=== PATIENT | male | born 1995 | race Caucasian/White ===

== ENCOUNTER 2018-02-22 08:54 | Emergency (ER) | payer OTHER ==
[2018-02-22 09:04] VITALS: BP 113/71; PULSE 68; TEMP 98.3; BMI 25.8
--- NOTE | 2018-02-22 09:18 | PDOC ---
History of Present Illness - General Chief Complaint: Eye Problem Stated Complaint: EYE PROBLEM Time Seen by Provider: 02/22/18 09:06 History Source: Patient Exam Limitations: No Limitations - History of Present Illness Initial Comments: Patient is a 22-year-old male who states that yesterday he was "poked in the eye ". He denies visual disturbances. He admits to photophobia. Denies pain with extraocular movement. Denies wearing contacts or glasses. Patient describes the pain as a constant throb and rates it at a 3 out of 10. Denies any aggravating or relieving factors. 02/22/18 09:14 Past History - Travel Traveled outside of the country in the last 30 days: No Close contact w/someone who was outside of country & ill: No - Past Medical History Allergies/Adverse Reactions: Allergies Allergy/AdvReac Type Severity Reaction Status Date / Time No Known Allergies Allergy Verified 02/22/18 09:01 Home Medications: Ambulatory Orders Ibuprofen [Motrin] 600 mg PO Q6H PRN #20 tablet 07/07/11 Erythromycin 0.5% Eye Ointment [Erythromycin 0.5% Eye Ointment -] 1 applic OD QID #1 tube 02/22/18 COPD: No - Surgical History Abdominal Surgery: Yes (hernia) - Suicide/Smoking/Psychosocial Hx Smoking Status: Yes Smoking History: Never smoked Have you smoked in the past 12 months: No Number of Cigarettes Smoked Daily: 5 Information on smoking cessation initiated: No Hx Alcohol Use: No Drug/Substance Use Hx: No Substance Use Type: None Review of Systems - Review of Systems Able to Perform ROS?: Yes HEENTM: Yes: Eye Pain, Tearing. No: Blurred Vision, Recent change in vision, Double Vision, Cataracts All Other Systems: Reviewed and Negative *Physical Exam - Vital Signs Last Vital Signs Temp Pulse Resp BP Pulse Ox 98.3 F 68 18 113/71 100 02/22/18 09:02 02/22/18 09:02 02/22/18 09:02 02/22/18 09:02 02/22/18 09:02 - Physical Exam Comments: Constitutional: VS stated, pt appears in no apparent distress; sitting in chair. Skin: Warm and dry. Intact, no lesions or excoriations. Head: Normocephalic; atraumatic Eyes: Extraocular movements intact, PERRL, conjunctiva is injected on the right. No discharge. Lids normal; no periorbital edema or erythema. Vision subjectively normal or at baseline. No pain with extraocular movements. Throat: Oropharynx with pink and moist mucosa. Lungs: Bilateral breath sounds clear upon auscultation. No adventitious breath sounds. Heart: Regular rate and rhythm, S1/S2 auscultated. No murmurs, rubs, or gallops. No visible pulsations, heaves, or lifts on precordium. Musculoskeletal: Moves all extremities without difficulty. Neurologic: Awake, alert. Conversation fluent Psychiatric: Appropriate affect. 02/22/18 09:15 Medical Decision Making - Medical Decision Making Two drops of Tetracaine Ophthalmic were placed in the right eye with good anesthetic effect. Fluorescein stain with lamp exam revealed a corneal abrasion. 02/22/18 09:16 *DC/Admit/Observation/Transfer Diagnosis at time of Disposition: Corneal abrasion - Discharge Dispostion Disposition: HOME Condition at time of disposition: Stable Decision to Admit order: No - Prescriptions Prescriptions: Erythromycin 0.5% Eye Ointment [Erythromycin 0.5% Eye Ointment -] 1 applic OD QID #1 tube - Referrals Referrals: Marycruz Acosta MD [Staff Physician] - - Patient Instructions - Post Discharge Activity
== END 2018-02-22 09:37 | disposition home or self-care (01) ==
LOC: JERFT 08:54
DX: S05.01XA Injury of conjunctiva and corneal abrasion without foreign body, right eye, initial encounter (principal); W50.0XXA Accidental hit or strike by another person, initial encounter; Y93.89 Activity, other specified; Y92.89 Other specified places as the place of occurrence of the external cause; Y99.8 Other external cause status
CPT/HCPCS: 99281-25

== ENCOUNTER 2021-08-25 16:46 | Emergency (ER) | payer OTHER ==
[2021-08-25 17:21] VITALS: BP 120/71; PULSE 90; TEMP 98.5; BMI 27.0
[2021-08-25] MEDS ORDERED: ACETAMINOPHEN 500 MG TABLET (FP) PO ONE (19:30)
[2021-08-25] MEDS ORDERED: ACETAMINOPHEN 500 MG TABLET (FP) ONE (19:33)
== END 2021-08-25 20:17 | disposition home or self-care (01) ==
LOC: JERFT 16:46
DX: S96.912A Strain of unspecified muscle and tendon at ankle and foot level, left foot, initial encounter (principal); X50.0XXA Overexertion from strenuous movement or load, initial encounter
CPT/HCPCS: 73590-TC-LT-FY; 73610-TC-LT-FY; 73630-TC-LT; 99284-25